=== PATIENT | male | born 1950 | race Caucasian/White ===

== ENCOUNTER 2018-08-22 05:38 | Emergency (ER) | payer OTHER, MEDICARE ==
--- NOTE | 2018-08-22 05:46 | EDPHY ---
H & P Stated Complaint: Urinary retention for a few hours, prostate hx Time Seen by Provider: 08/22/18 05:46 HPI/ROS: HPI CHIEF COMPLAINT: Unable to urinate. 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 States he had a last normal stream around 11:00 p.m.. However this morning tried to urinate and was unable to do so. Very little output. No fever, no back pain, no vomiting. States he has had history of BPH and radiofrequency ablation. He has had outflow obstruction before. Past Medical History: BPH Past Surgical History: RFA. 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 Family History: Noncontributory ROS REVIEW OF SYSTEMS: 10 Systems were reviewed and negative with the exception of the elements mentioned in the history of present illness. Exam Constitutional triage nursing summary reviewed, vital signs reviewed, awake/ alert. Eyes normal conjunctivae and sclera, EOMI, PERRLA. HENT normal inspection, atraumatic, moist mucus membranes, no epistaxis, neck supple/ no meningismus, no raccoon eyes. Respiratory clear to auscultation bilaterally, normal breath sounds, no respiratory distress, no wheezing. Cardiovascular rate normal, regular rhythm, no murmur, no edema, distal pulses normal. Gastrointestinal mild suprapubic tenderness, distention, no rebound, no guarding, normal bowel sounds, no distension, no pulsatile mass. Genitourinary no CVA tenderness. Musculoskeletal no midline vertebral tenderness, full range of motion, no calf swelling, no tenderness of extremities, no meningismus, good pulses, neurovascularly intact. Skin pink, warm, & dry, no rash, skin atraumatic. Neurologic awake, alert and oriented x 3, AAOx3, moves all 4 extremities equally, motor intact, sensory intact, CN II-XII intact, normal cerebellar, normal vision, normal speech. Psychiatric normal mood/affect. Heme/Lymph/Immune no lymphadenopathy. Differential Diagnosis: Differential diagnosis includes but is not limited to and in no particular order: Urinary outflow obstruction, Bowel obstruction, appendicitis, gallbladder disease, diverticulitis, colitis, enteritis, perforated viscus, gastritis, GERD, esophagitis, urinary tract infection, pyelonephritis, kidney stones Medical Decision Making: Includes but is not limited to in a particular order urinary retention, outflow obstruction, BPH causing outflow obstruction Re-evaluation: Plan for this patient bladder scan, urinalysis, Marsh catheter placement. Patient bladder scan 975ccs. 0650: Marsh catheter placed. Over 900 cc were drained. Patient is feeling much better. He would like to go home. Discussed going home with a catheter he would like to do this. Will follow up with Urology. Plan will be for Marsh catheter placement to drain his urinary retention. Follow up with Urology on outpatient basis. Additionally we discussed return precautions return to the emergency room if worsening symptoms includes fever, abdominal pain, vomiting, not doing well. Source: Patient - Personal History Current Tetanus Diphtheria and Acellular Pertussis (TDAP): Yes - Medical/Surgical History Hx Asthma: No Hx Chronic Respiratory Disease: No Hx Diabetes: No Hx Cardiac Disease: Yes Hx Renal Disease: Yes Hx Cirrhosis: No Hx Alcoholism: No Hx HIV/AIDS: No Hx Splenectomy or Spleen Trauma: No Other PMH: Prostate issues, intermittent afib, GERD, HTN - Social History Smoking Status: Never smoked Constitutional: Initial Vital Signs Temperature (C) 36.7 C 08/22/18 05:42 Heart Rate 66 08/22/18 05:42 Respiratory Rate 16 08/22/18 05:42 Blood Pressure 119/84 H 08/22/18 05:42 O2 Sat (%) 97 08/22/18 05:42 O2 Delivery Mode Room Air Allergies/Adverse Reactions: morphine Allergy (Verified 08/22/18 05:44) Home Medications: Medication Instructions Recorded Aspirin 08/22/18 Digoxin 08/22/18 Famotidine 08/22/18 Flecainide Acetate 08/22/18 Lisinopril 08/22/18 Methocarbamol 08/22/18 Protonix 08/22/18 Vitamin D3 08/22/18 Medical Decision Making - Data Points Laboratory Results: 08/22/18 06:10 Urine Color PALE YELLOW Urine Appearance CLEAR Urine pH 5.0 (5.0-7.5) Ur Specific [place] 1.005 (1.002-1.030) Urine Protein NEGATIVE (NEGATIVE) Urine Ketones NEGATIVE (NEGATIVE) Urine Blood 1+ H (NEGATIVE) Urine Nitrate NEGATIVE (NEGATIVE) Urine Bilirubin NEGATIVE (NEGATIVE) Urine Urobilinogen NEGATIVE EU EU (0.2-1.0) Ur Leukocyte Esterase NEGATIVE (NEGATIVE) Urine RBC Pending Urine WBC Pending Ur Epithelial Cells Pending Urine Glucose NEGATIVE (NEGATIVE) Departure - Departure Disposition: Home, Routine, Self-Care Clinical Impression: Urinary outflow obstruction Condition: Good Instructions: Urinary Retention in Men (ED), Enlarged Prostate (BPH) (ED) Referrals: Patient,NotPresent [Unknown] - As per Instructions Phoenix Denny MD [Medical Doctor] - As per Instructions
[2018-08-22 07:01] VITALS: BP 114/66
== END 2018-08-22 07:01 | disposition home or self-care (01) ==
PROC: 4A0D7LZ Measurement of Urinary Volume, Via Natural or Artificial Opening (ICD-10-PCS; principal; 2018-08-22)
PROC: 0T9B70Z Drainage of Bladder with Drainage Device, Via Natural or Artificial Opening (ICD-10-PCS; principal; 2018-08-22)
DX: R33.9 Retention of urine, unspecified (principal); N40.1 Benign prostatic hyperplasia with lower urinary tract symptoms